=== PATIENT | male | born 1985 | race Caucasian/White ===

== ENCOUNTER → 2018-03-06 | Outpatient (CLI) | payer BC ==
[2018-03-07 00:03] LABS: Hepatitis B Surface AB- Quant 3.5 mIU/mL
== END | disposition home or self-care (01) ==
LOC: LABWHC1 15:35
PROVIDERS: ATTEND Physician Assistant Medical
DX: L40.0 Psoriasis vulgaris (principal)
CPT/HCPCS: 36415; 86480; 86706; 87340

== ENCOUNTER 2018-05-19 11:09 | Emergency (ER) | payer BC ==
[2018-05-19 11:23] VITALS: RESP 18
[2018-05-19] MEDS ORDERED: HYDROcodone/APAP 5-325MG 1 EACH TAB PO STA (11:56)
[2018-05-19] MEDS ORDERED: ceFAZolin (PMX-bag) 2,000 MG in DEXTROSE/WATER 1 50ML.BAG IVPB STA (11:56)
[2018-05-19] MEDS ORDERED: SODIUM CHLORIDE 0.9% 1,000 ML IV ONE (11:57)
[2018-05-19] MEDS ORDERED: ceFAZolin IN SWFI 2 GM/20 ML SYRINGE IVP STA (11:59)
[2018-05-19] MEDS ORDERED: SODIUM CHLORIDE 0.9% 1,000 ML IV SCH (12:00)
[2018-05-19 12:30] LABS: Basophils % (A) 0 %; Eosinophils # (A) 0.2 k/uL (0-0.7); Eosinophils % (A) 3 %; HCT 42.5 % (39.0-53.0); HGB 14.8 gm/dL (13.0-17.5); Lymphocytes # (A) 0.9 k/uL (1.0-4.8); Lymphocytes % (A) 11 %; MCH 31.4 pg (25.0-35.0); MCHC 34.7 g/dL (31.0-37.0); MCV 90.5 fL (80.0-100.0); Mean Platelet Volume 8.3; Monocytes # (A) 0.4 k/uL (0-1.0); Monocytes % (A) 5 %; Neutrophils % (A) 79 %; Platelet Count 215 k/uL (150-450); RDW 15.5 % (11.5-15.5); WBC 7.7 k/uL (3.8-10.6)
[2018-05-19 12:35] LABS: ALT 76 U/L (21-72); AST 43 U/L (17-59); Albumin 3.5 g/dL (3.5-5.0); Alkaline Phosphatase 100 U/L (38-126); Anion Gap 8 mmol/L; Blood Urea Nitrogen 13 mg/dL (9-20); Calcium 9.3 mg/dL (8.4-10.2); Carbon Dioxide 22 mmol/L (22-30); Chloride 108 mmol/L (98-107); Glucose 106 mg/dL (74-99); Potassium 4.6 mmol/L (3.5-5.1); Sodium 138 mmol/L (137-145); Total Bilirubin 0.9 mg/dL (0.2-1.3); Total Protein 6.6 g/dL (6.3-8.2)
--- NOTE | 2018-05-19 13:30 | ED ---
Skin/Abscess/FB HPI - General Chief complaint: Skin/Abscess/Foreign Body Stated complaint: Leg pain Time Seen by Provider: 05/19/18 11:26 Source: patient, RN notes reviewed, old records reviewed Mode of arrival: ambulatory Limitations: no limitations - History of Present Illness Initial comments: Patient is a 33-year-old male with history of psoriasis presents concerned today with an abscess over the right calf. Patient states that he scratched his skin and causing skin to break and had a pimple formed. Patient reports he try to pop at home as mom and pus was out. Patient states the pain and swelling is worsening today. Patient is on methotrexate for psoriasis. - Related Data Previous Rx's Medication Instructions Recorded Sulfamethox-Tmp 800-160Mg [Bactrim 2 each PO Q12HR #56 tab 10/14/14 DS 800-160 mg] Cephalexin [Keflex] 500 mg PO Q6HR #40 cap 05/19/18 Sulfamethox-Tmp 800-160Mg [Bactrim 2 tab PO Q12HR #40 tab 05/19/18 DS 800-160 mg] Allergies Allergy/AdvReac Type Severity Reaction Status Date / Time No Known Allergies Allergy Verified 05/19/18 11:21 Review of Systems ROS Statement: Those systems with pertinent positive or pertinent negative responses have been documented in the HPI. ROS Other: All systems not noted in ROS Statement are negative. Past Medical History Additional Past Medical History / Comment(s): spleen injury History of Any Multi-Drug Resistant Organisms: None Reported Past Surgical History: No Surgical Hx Reported Past Psychological History: PTSD Smoking Status: Current some day smoker Past Alcohol Use History: Occasional Past Drug Use History: None Reported General Exam - General Exam Comments Initial Comments: This patient's a 33-year-old male. Alert and oriented. No distress. Limitations: no limitations General appearance: alert, in no apparent distress Head exam: Present: atraumatic, normocephalic, normal inspection Eye exam: Present: normal appearance, PERRL, EOMI. Absent: scleral icterus, conjunctival injection, periorbital swelling ENT exam: Present: normal exam, mucous membranes moist Neck exam: Present: normal inspection. Absent: tenderness, meningismus, lymphadenopathy Respiratory exam: Present: normal lung sounds bilaterally. Absent: respiratory distress, wheezes, rales, rhonchi, stridor Cardiovascular Exam: Present: regular rate, normal rhythm, normal heart sounds. Absent: systolic murmur, diastolic murmur, rubs, gallop, clicks GI/Abdominal exam: Present: soft, normal bowel sounds. Absent: distended, tenderness, guarding, rebound, rigid Neurological exam: Present: alert, oriented X3, CN II-XII intact Psychiatric exam: Present: normal affect, normal mood Skin exam: Present: warm, dry, intact, normal color, rash (Plaque-like scabs over knees elbows forearms. Reports that his stresses improving. Evidence of erythema and cellulitis and palpable abscess over the right calf.) Course Vital Signs 05/19/18 05/19/18 11:21 13:59 Temperature 100.9 F H 98.1 F Pulse Rate 79 61 Respiratory 18 18 Rate Blood Pressure 129/89 126/87 O2 Sat by Pulse 96 97 Oximetry Procedures - Incision & Drainage Consent Obtained: verbal consent Indication: abscess Site: lower extremity (R lower leg ) Size (cm): 5 Anesthetic Used: lidocaine 1% Amount (mLs): 10 I&D Cleaning Method: Iodine Sterile Field Used?: Yes Scalpel Used: #11 I&D Drainage Obtained: Pus, Blood Packing: Iodoform Culture Obtained?: Yes Patient Tolerated Procedure: well, no complications Medical Decision Making - Medical Decision Making 33-year-old male presents from today with fever and complaints of right leg wound abscess. Patient has a history of psoriasis and methotrexate. He scratched his leg and developed a pimple. This does not turn into significant abscess and cellulitis. Patient was given IV fluids labwork obtained. Blood count was normal. Patient had incision and drainage of the wound. Possibly 5 mL of Prelone fluid was removed. Culture completed. Wound was packed. Patient was started on Keflex and Bactrim. Given a dose of IV antibiotics and ED. Discussed close follow-up with primary care provider. All questions answered. - Lab Data Result diagrams: 05/19/18 12:11 05/19/18 12:11 Lab Results 05/19/18 05/19/18 05/19/18 Range/Units 12:11 12:11 12:11 WBC 7.7 (3.8-10.6) k/uL RBC 4.70 (4.30-5.90) m/uL Hgb 14.8 (13.0-17.5) gm/dL Hct 42.5 (39.0-53.0) % MCV 90.5 (80.0-100.0) fL MCH 31.4 (25.0-35.0) pg MCHC 34.7 (31.0-37.0) g/dL RDW 15.5 (11.5-15.5) % Plt Count 215 (150-450) k/uL Neutrophils % 79 % Lymphocytes % 11 % Monocytes % 5 % Eosinophils % 3 % Basophils % 0 % Neutrophils # 6.0 (1.3-7.7) k/uL Lymphocytes # 0.9 L (1.0-4.8) k/uL Monocytes # 0.4 (0-1.0) k/uL Eosinophils # 0.2 (0-0.7) k/uL Basophils # 0.0 (0-0.2) k/uL Sodium 138 (137-145) mmol/L Potassium 4.6 (3.5-5.1) mmol/L Chloride 108 H (98-107) mmol/L Carbon Dioxide 22 (22-30) mmol/L Anion Gap 8 mmol/L BUN 13 (9-20) mg/dL Creatinine 0.73 (0.66-1.25) mg/dL Est GFR (CKD-EPI)AfAm >90 (>60 ml/min/1.73 sqM) Est GFR (CKD-EPI)NonAf >90 (>60 ml/min/1.73 sqM) Glucose 106 H (74-99) mg/dL Plasma Lactic Acid Antione 1.3 (0.7-2.0) mmol/L Calcium 9.3 (8.4-10.2) mg/dL Total Bilirubin 0.9 (0.2-1.3) mg/dL AST 43 (17-59) U/L ALT 76 H (21-72) U/L Alkaline Phosphatase 100 (38-126) U/L Total Protein 6.6 (6.3-8.2) g/dL Albumin 3.5 (3.5-5.0) g/dL Disposition Clinical Impression: Abscess, Abscess of right leg Disposition: HOME SELF-CARE Condition: Good Instructions (If sedation given, give patient instructions): Abscess Incision and Drainage (ED) Additional Instructions: Patient resting and take antibiotics as prescribed. Motrin Tylenol rest ice and elevate. Follow-up with her primary care doctor. If the area of redness and swelling worsens within the next 24-48 hours please return for reevaluation and possible IV antibiotics. Prescriptions: Sulfamethox-Tmp 800-160Mg [Bactrim DS 800-160 mg] 2 tab PO Q12HR #40 tab Cephalexin [Keflex] 500 mg PO Q6HR #40 cap Is patient prescribed a controlled substance at d/c from ED?: No Referrals: Flynn Maradiaga MD [Primary Care Provider] - 1-2 days Time of Disposition: 13:44
[2018-05-19 14:00] VITALS: BP 126/87; PULSE 61; TEMP 98.1
== END 2018-05-19 13:59 | disposition home or self-care (01) ==
LOC: EC 11:09
DX: L02.415 Cutaneous abscess of right lower limb (principal); L40.9 Psoriasis, unspecified; F17.200 Nicotine dependence, unspecified, uncomplicated; Z79.899 Other long term (current) drug therapy
CPT/HCPCS: 36415; 80053; 83605; 85025; 87040; 87070; 87205; 87077; 87186; 99284; 10060; 96374; 96361 ×2; J0690

== ENCOUNTER 2019-01-06 09:10 | Emergency (ER) | payer BC ==
[2019-01-06 09:25] VITALS: RESP 18; TEMP 97.6
[2019-01-06] MEDS ORDERED: ONDANSETRON 4 MG/2 ML VIAL IVP STA (09:35)
[2019-01-06] MEDS ORDERED: KETOROLAC 30 MG/ML 1 ML VIAL IVP STA (09:35)
[2019-01-06] MEDS ORDERED: SODIUM CHLORIDE 0.9% 1,000 ML IV STA (09:35)
--- NOTE | 2019-01-06 09:40 | ED ---
General Adult HPI - General Chief complaint: Nausea/Vomiting/Diarrhea Stated complaint: headache/vomiting Time Seen by Provider: 01/06/19 09:25 Source: patient, family Mode of arrival: ambulatory Limitations: no limitations - History of Present Illness Initial comments: Patient is a 33-year-old male presenting to the emergency Department with complaints of a headache and vomiting since last night. Patient states he started having a headache yesterday evening and then has been throwing up throughout the night. Patient states he still feels nauseous and has been vomiting this morning. Patient states he does have headaches every once in a while but has never had anything this bad. Patient does have chills but denies fever. Patient denies abdominal pain, chest pain, shortness of breath, cough, runny nose. Patient states approximately 10 years ago he had a headache and it was found that he had an inflamed nerve in his neck. Patient has no other pertinent past medical history. Patient denies any surgeries. Patient states he did take some Tylenol yesterday which did not help with the symptoms. Patient has no other complaints at this time. Upon arrival to ER, vital signs are stable, afebrile. - Related Data Previous Rx's Medication Instructions Recorded Sulfamethox-Tmp 800-160Mg [Bactrim 2 each PO Q12HR #56 tab 10/14/14 DS 800-160 mg] Cephalexin [Keflex] 500 mg PO Q6HR #40 cap 05/19/18 Sulfamethox-Tmp 800-160Mg [Bactrim 2 tab PO Q12HR #40 tab 05/19/18 DS 800-160 mg] Ondansetron Odt [Zofran Odt] 4 mg PO Q8HR PRN #10 tab 01/06/19 Allergies Allergy/AdvReac Type Severity Reaction Status Date / Time No Known Allergies Allergy Verified 05/19/18 11:21 Review of Systems ROS Statement: Those systems with pertinent positive or pertinent negative responses have been documented in the HPI. ROS Other: All systems not noted in ROS Statement are negative. Past Medical History Additional Past Medical History / Comment(s): spleen injury History of Any Multi-Drug Resistant Organisms: MRSA Date of last positivie culture/infection: 07/19/18 MDRO Source:: LEG Past Surgical History: No Surgical Hx Reported Past Psychological History: PTSD Smoking Status: Current some day smoker Past Alcohol Use History: Occasional Past Drug Use History: None Reported General Exam - General Exam Comments Initial Comments: GENERAL: Patient is wearing a hat pulled down over his eyes and appears uncomfortable.. HEAD: Atraumatic, normocephalic. EYES: Pupils equal round and reactive to light, extraocular movements intact, sclera anicteric, conjunctiva are normal. ENT: TMs normal, nares patent, oropharynx clear without exudates. Moist mucous membranes. NECK: Normal range of motion, supple without lymphadenopathy or JVD. LUNGS: Breath sounds clear to auscultation bilaterally and equal. No wheezes rales or rhonchi. HEART: Regular rate and rhythm without murmurs, rubs or gallops. ABDOMEN: Soft, nontender, normoactive bowel sounds. No guarding, no rebound. No masses appreciated. : Deferred EXTREMITIES: Normal range of motion, no pitting or edema. No clubbing or cyanosis. NEUROLOGICAL: Cranial nerves II through XII grossly intact. Normal speech, normal gait. PSYCH: Normal mood, normal affect. SKIN: Warm, Dry, normal turgor, no rashes or lesions noted. Limitations: no limitations Course Vital Signs 01/06/19 01/06/19 09:23 12:44 Temperature 97.6 F Pulse Rate 69 75 Respiratory 18 18 Rate Blood Pressure 132/88 128/87 O2 Sat by Pulse 97 98 Oximetry Medical Decision Making - Medical Decision Making Patient is 33-year-old male presenting with a headache and vomiting since last night. Vital signs are stable. Lab work shows no acute abnormalities, influenza is negative. Patient was given fluids as well as pain medicine without improvement in symptoms. CT the head and neck showed no acute abnormalities. Patient was given additional pain medicine and reports improvement of symptoms. I discussed with patient that his symptoms are most likely from a migraine. Patient is stable for discharge at this time and he is in agreement with this plan of care. Patient will follow up with his PCP. Case discussed with Dr. Jhaveri. - Lab Data Result diagrams: 01/06/19 10:04 01/06/19 10:04 Lab Results 01/06/19 01/06/19 01/06/19 Range/Units 10:04 10:04 10:04 WBC 5.6 (3.8-10.6) k/uL RBC 5.42 (4.30-5.90) m/uL Hgb 17.1 (13.0-17.5) gm/dL Hct 49.0 (39.0-53.0) % MCV 90.5 (80.0-100.0) fL MCH 31.6 (25.0-35.0) pg MCHC 35.0 (31.0-37.0) g/dL RDW 12.9 (11.5-15.5) % Plt Count 218 (150-450) k/uL Neutrophils % 70 % Lymphocytes % 22 % Monocytes % 5 % Eosinophils % 1 % Basophils % 1 % Neutrophils # 3.9 (1.3-7.7) k/uL Lymphocytes # 1.2 (1.0-4.8) k/uL Monocytes # 0.3 (0-1.0) k/uL Eosinophils # 0.1 (0-0.7) k/uL Basophils # 0.0 (0-0.2) k/uL Sodium 138 (137-145) mmol/L Potassium 4.4 (3.5-5.1) mmol/L Chloride 107 (98-107) mmol/L Carbon Dioxide 24 (22-30) mmol/L Anion Gap 7 mmol/L BUN 12 (9-20) mg/dL Creatinine 0.84 (0.66-1.25) mg/dL Est GFR (CKD-EPI)AfAm >90 (>60 ml/min/1.73 sqM) Est GFR (CKD-EPI)NonAf >90 (>60 ml/min/1.73 sqM) Glucose 110 H (74-99) mg/dL Plasma Lactic Acid Antione 1.3 (0.7-2.0) mmol/L Calcium 9.6 (8.4-10.2) mg/dL Total Bilirubin 1.2 (0.2-1.3) mg/dL AST 25 (17-59) U/L ALT 30 (21-72) U/L Alkaline Phosphatase 71 (38-126) U/L Total Protein 7.4 (6.3-8.2) g/dL Albumin 4.0 (3.5-5.0) g/dL Influenza Type A RNA (Not Detectd) Influenza Type B (PCR) (Not Detectd) 01/06/19 Range/Units 10:04 WBC (3.8-10.6) k/uL RBC (4.30-5.90) m/uL Hgb (13.0-17.5) gm/dL Hct (39.0-53.0) % MCV (80.0-100.0) fL MCH (25.0-35.0) pg MCHC (31.0-37.0) g/dL RDW (11.5-15.5) % Plt Count (150-450) k/uL Neutrophils % % Lymphocytes % % Monocytes % % Eosinophils % % Basophils % % Neutrophils # (1.3-7.7) k/uL Lymphocytes # (1.0-4.8) k/uL Monocytes # (0-1.0) k/uL Eosinophils # (0-0.7) k/uL Basophils # (0-0.2) k/uL Sodium (137-145) mmol/L Potassium (3.5-5.1) mmol/L Chloride (98-107) mmol/L Carbon Dioxide (22-30) mmol/L Anion Gap mmol/L BUN (9-20) mg/dL Creatinine (0.66-1.25) mg/dL Est GFR (CKD-EPI)AfAm (>60 ml/min/1.73 sqM) Est GFR (CKD-EPI)NonAf (>60 ml/min/1.73 sqM) Glucose (74-99) mg/dL Plasma Lactic Acid Antione (0.7-2.0) mmol/L Calcium (8.4-10.2) mg/dL Total Bilirubin (0.2-1.3) mg/dL AST (17-59) U/L ALT (21-72) U/L Alkaline Phosphatase (38-126) U/L Total Protein (6.3-8.2) g/dL Albumin (3.5-5.0) g/dL Influenza Type A RNA Not Detected (Not Detectd) Influenza Type B (PCR) Not Detected (Not Detectd) Disposition Clinical Impression: Headache, Nausea & vomiting Disposition: HOME SELF-CARE Condition: Stable Instructions (If sedation given, give patient instructions): Acute Headache ( ED) Additional Instructions: Please return to the Emergency Department if symptoms worsen or any other concerns. Follow up with PCP as discussed. Prescriptions: Ondansetron Odt [Zofran Odt] 4 mg PO Q8HR PRN #10 tab PRN Reason: Nausea Is patient prescribed a controlled substance at d/c from ED?: No Referrals: Flynn Maradiaga MD [Primary Care Provider] - 1-2 days
[2019-01-06 10:17] LABS: Basophils % (A) 1 %; Eosinophils # (A) 0.1 k/uL (0-0.7); Eosinophils % (A) 1 %; HGB 17.1 gm/dL (13.0-17.5); Lymphocytes # (A) 1.2 k/uL (1.0-4.8); Lymphocytes % (A) 22 %; MCH 31.6 pg (25.0-35.0); MCV 90.5 fL (80.0-100.0); Mean Platelet Volume 7.6; Monocytes # (A) 0.3 k/uL (0-1.0); Monocytes % (A) 5 %; Neutrophils # (A) 3.9 k/uL (1.3-7.7); Neutrophils % (A) 70 %; Platelet Count 218 k/uL (150-450); RBC 5.42 m/uL (4.30-5.90); RDW 12.9 % (11.5-15.5); WBC 5.6 k/uL (3.8-10.6)
[2019-01-06 10:25] LABS: ALT 30 U/L (21-72); AST 25 U/L (17-59); African American GFR (CKD) >90 (>60 ml/min/1.73 sqM); Alkaline Phosphatase 71 U/L (38-126); Anion Gap 7 mmol/L; Blood Urea Nitrogen 12 mg/dL (9-20); Calcium 9.6 mg/dL (8.4-10.2); Carbon Dioxide 24 mmol/L (22-30); Chloride 107 mmol/L (98-107); Glucose 110 mg/dL (74-99); Non-African American GFR(CKD) >90 (>60 ml/min/1.73 sqM); Potassium 4.4 mmol/L (3.5-5.1); Sodium 138 mmol/L (137-145); Total Bilirubin 1.2 mg/dL (0.2-1.3); Total Protein 7.4 g/dL (6.3-8.2)
[2019-01-06] MEDS ORDERED: diphenhydrAMINE 50 MG/ML 1 ML VIAL IVP STA (10:39)
[2019-01-06] MEDS ORDERED: MORPHINE SULFATE 4 MG/ML SYRINGE IVP STA (10:39)
--- NOTE | 2019-01-06 12:11 | CT ---
EXAMINATION TYPE: CT brain nickyine wo con DATE OF EXAM: 01/06/2019 COMPARISON: 07/29/2009 HISTORY: Headache and vomiting CT DLP: 1257.7 mGycm. Automated Exposure Control for Dose Reduction was Utilized. TECHNIQUE: CT scan of the head and cervical spine are performed without contrast. FINDINGS: There is no acute intracranial hemorrhage, mass effect, or midline shift identified. The ventricles and sulci are within normal limits in size. The globes are intact. Very minimal mucosal thickening of the maxillary sinuses on coronal image 6 of the cervical spine images. Remaining parana cesilia sinuses and mastoid air cells are well aerated. Cervical spine is visualized in its entirety from C1 through upper thoracic levels and demonstrates s atisfactory alignment without evidence of acute fracture or dislocation. Prevertebral soft tissue ap pears within normal limits. The C1-C2 articulation is unremarkable. Reversal usual cervical lordosi s that may be on the basis of muscular or strain/spasm or patient positioning. IMPRESSION: 1. There is no acute fracture or dislocation evident in the cervical spine. 2. No acute intracranial hemorrhage, mass effect, or midline shift is seen. 3. Very minimal mucosal thickening of the maxillary sinuses. 4. Reversal of the usual cervical lordosis that may be on the basis of muscular spasm/strain or patie nt positioning
[2019-01-06 12:44] VITALS: BP 128/87; PULSE 75
== END 2019-01-06 12:45 | disposition home or self-care (01) ==
LOC: EC 09:10
DX: R51 Headache (principal); R11.2 Nausea with vomiting, unspecified; F17.200 Nicotine dependence, unspecified, uncomplicated; Z87.19 Personal history of other diseases of the digestive system; Z86.14 Personal history of Methicillin resistant Staphylococcus aureus infection
CPT/HCPCS: 36415; 80053; 83605; 85025; 87502; 72125; 70450; 99284; 96374; 96375 ×3; 96361; J2270; J1200; J2405; J1885

== ENCOUNTER → 2024-07-14 | Outpatient (CLI) | payer BC ==
--- NOTE | 2024-07-14 09:25 | XR ---
EXAMINATION TYPE: XR chest 2V DATE OF EXAM: 07/14/2024 8:36 AM COMPARISON: 11/16/2010 CLINICAL INDICATION: Male, 39 years old with history of Z00.00 R06.02 SOB, TECHNIQUE: XR chest 2V view(s) obtained. FINDINGS: The heart size is normal. The pulmonary vasculature is normal. The lungs are clear. IMPRESSION: 1. No acute pulmonary process. [facility], , 07/14/2024 9:23 AM
[2024-07-14 15:21] LABS: Appearance,Urine Clear (Clear); Basophils # (A) 0.05 X 10*3/uL (0.00-0.10); Basophils % (A) 0.9 %; Bilirubin,Urine Negative (Negative); Blood,Urine Negative (Negative); Color,Urine Yellow (Yellow); Eosinophils # (A) 0.15 X 10*3/uL (0.04-0.35); Eosinophils % (A) 2.8 %; HCT 44.1 % (39.6-50.0); HGB 15.2 g/dL (13.0-17.0); Ketones,Urine Negative (Negative); Lymphocytes # (A) 1.23 X 10*3/uL (0.90-5.00); Lymphocytes % (A) 23.3 %; MCHC 34.5 g/dL (32.0-37.0); Mean Platelet Volume 11.4 FL (9.5-12.2); Monocytes # (A) 0.47 X 10*3/uL (0.20-1.00); Monocytes % (A) 8.9 %; NRBC Per 100 WBC 0 X 10*3/uL (0.00-0.01); Neutrophils # (A) 3.38 X 10*3/uL (1.80-7.70); Neutrophils % (A) 63.9 %; Nitrite,Urine Negative (Negative); PH, Urine 5.5; Platelet Count 181 X 10*3/uL (140-440); RDW 13.2 % (11.5-14.5); Specific Gravity,Urine 1.024 (1.001-1.030); Urobilinogen,Urine 0.2 E.U./DL; WBC 5.29 X 10*3/uL (4.50-10.00)
[2024-07-14 15:33] LABS: Erythrocyte Sedimentation Rate 11 mm/Hr (0-15)
[2024-07-14 15:50] LABS: C Reactive Protein <0.30 mg/dL (0.00-0.80); Creatine Kinase 146 U/L (35-257)
[2024-07-14 15:51] LABS: % Iron Saturation 35.13 (15.00-50.00); ALT 31 U/L (10-49); AST 24 U/L (14-35); Albumin 3.6 g/dL (3.8-4.9); Alkaline Phosphatase 68 U/L (41-126); BUN/Creat Ratio 15.56 Ratio (12.00-20.00); Calcium 8.7 mg/dL (8.7-10.3); Carbon Dioxide 22.6 mmol/L (21.6-31.8); Chloride 106 mmol/L (96-109); Chol/HDL Ratio 4.54 Ratio; GGT 33 U/L (0-73); Globulin 2.4 g/dL (1.6-3.3); Glucose 108 mg/dL (70-110); Iron 124 UG/DL (65-175); LDL Cholesterol,Calculated 107.5 mg/dL (0.0-131.0); Phosphorus 3.3 mg/dL (2.4-5.1); Potassium 4.2 mmol/L (3.5-5.5); Prostate Specific Antigen 0.75 ng/mL (0.000-2.500); Rheumatoid Factor, Qnt <15 IU/mL (0-15); Sodium 140 mmol/L (135-145); Total Bilirubin 0.8 mg/dL (0.3-1.2); Total Iron Binding Capacity 353 UG/DL (228-460); Uric Acid 5.9 mg/dL (3.7-8.7)
[2024-07-14 16:16] LABS: Hepatitis A Antibody IgM Nonreactive (Nonreactive); Hepatitis B Core IgM Nonreactive (Nonreactive); Hepatitis B Surface Antigen Nonreactive (Nonreactive); Hepatitis C IgG Antibody Nonreactive (Nonreactive)
[2024-07-14 17:09] LABS: Cyclic Citrull Pep IgG Unit <1.5 U/mL (<=3.9); Cyclic Citrullinated Pep IgG Negative
[2024-07-14 21:44] LABS: Microalbumin Creatinine Ratio <6 mg/g Cr (0-30)
== END | disposition home or self-care (01) ==
LOC: LABWHC1 07:44
PROVIDERS: ATTEND Internal Medicine
DX: Z00.00 Encounter for general adult medical examination without abnormal findings (principal); D64.9 Anemia, unspecified; J44.9 Chronic obstructive pulmonary disease, unspecified; I10 Essential (primary) hypertension; E87.8 Other disorders of electrolyte and fluid balance, not elsewhere classified; E78.5 Hyperlipidemia, unspecified; E55.9 Vitamin D deficiency, unspecified; E66.9 Obesity, unspecified; M06.9 Rheumatoid arthritis, unspecified; R73.9 Hyperglycemia, unspecified; R06.02 Shortness of breath
CPT/HCPCS: 36415; 71046; 80053; 80061; 80074; 81003; 82043; 82306; 82550; 82570; 82728; 82977; 83036; 83540; 83550; 83735; 84100; 84153; 84443; 84550; 85025; 85652; 86140; 86200; 86431